=== PATIENT | male | born 1980 | race Caucasian/White ===

== ENCOUNTER 2017-02-11 19:24 | Emergency (ER) | payer OTHER ==
--- NOTE | ~2017-02-11 | CR20 ---
[facility] A Service of [facility] RADIOLOGY TEXT RESULTS PATIENT: SEBASTIAN SEGUNDO LOCATION: [facility] : [birth year] UNIT #: [id number] AGE: [address]: REMIGIO POSADAS APRN SEX: M ORDER DR: [id number] [facility] [address] [place], [place] [address] [id number] E MR#: [id number] Acc #: [id number] NAME: SEBASTIAN SEGUNDO. : 1980 SEX: M STUDY DATE/TIME: 02/11/2017 20:32 UNIT: [facility] ROOM: STUDY DESCRIPTION: CR Ankle Min 3 Views Lt Attending Physician: Remigio Posadas Aprn Ordering Physician: Ed Doc Courtney Martinez Primary Care Physician: No Primary Care Physician MEDICAL IMAGING REPORT This report is preliminary unless electronic signature is present EXAM Left ankle 02/11/2017. HISTORY 36-year-old male in the ED complaining of left ankle pain and swelling after twisting injury playing volleyball 2 days prior. TECHNIQUE Three-view left ankle series. FINDINGS No fracture, dislocation or other acute osseous abnormality is visible. Moderate soft tissue swelling is noted over the lateral malleolus with soft tissue edema in the visualized lower leg. IMPRESSION Lateral soft tissue swelling. Left ankle series is otherwise negative. Dictated by... Dami Burton M.D. THIS IS AN ELECTRONICALLY VERIFIED REPORT Dami Burton M.D. at 02/13/2017 8:50 AM LALO/dylan TD: 02/12/2017 11:57 JOB #: [id number] MEDICAL IMAGING REPORT Page 1 of 1 COPY
[~2017-02-11 19:24] MED LIST: ALBUTEROL17 GM INH; ATIVAN PO; NO MEDICATIONS; PREDNISONE PO; SPECTAZOLE15 GM TP; TESSALON200 MG PO; TUSSIONEX PENN473 ML PO; ZITHROMAX PO; ZYRTEC10 M2 PO
== END 2017-02-11 21:50 | disposition home or self-care (01) ==
LOC: CED 19:24
DX: S93.402A Sprain of unspecified ligament of left ankle, initial encounter (principal); F17.210 Nicotine dependence, cigarettes, uncomplicated; X50.1XXA Overexertion from prolonged static or awkward postures, initial encounter; Y93.68 Activity, volleyball (beach) (court); Y92.9 Unspecified place or not applicable
CPT/HCPCS: 29405; 73610; 99283